=== PATIENT | male | born 1990 | race Caucasian/White ===

== ENCOUNTER 2021-11-18 13:28 | Emergency (ER) | payer OTHER ==
[2021-11-18] MEDS ORDERED: CEPHALEXIN500 MG PO (17:04)
== END 2021-11-18 17:50 | disposition home or self-care (01) ==
LOC: FER 13:28
DX: S61.011A Laceration without foreign body of right thumb without damage to nail, initial encounter (principal); Z23 Encounter for immunization; Z28.310 Unvaccinated for COVID-19; Z88.0 Allergy status to penicillin; W26.0XXA Contact with knife, initial encounter
CPT/HCPCS: 90471; 90715